=== PATIENT | female | born 1980 | race Caucasian/White ===

== ENCOUNTER 2019-03-02 16:23 | Emergency (ER) | payer MEDICAID ==
[~2019-03-02] VITALS: Ht 154.9 cm; Wt 77.6 kg
[2019-03-02 16:27] VITALS: Ht 154.9 cm; Wt 77.6 kg
[2019-03-02 17:09] LABS: BASOPHIL % 2.4 % (0-2); PLATELET COUNT 318 x10^3mcL (130-400); RED CELL DISTRIBUTION WIDTH 13.5 % (11.5-14.5)
[2019-03-02 17:30] LABS: ALBUMIN 3.8 g/dL (3.4-5.0); AST/SGOT 15 U/L (15-37); BILIRUBIN TOTAL 0.2 mg/dL (0.20-1.00); CALCIUM 8.9 mg/dL (8.5-10.1); CARBON DIOXIDE 31.3 mmol/L (21-32); CHLORIDE SERUM 104 mmol/L (98-107); GFR1 > 60 mL/min; GLUCOSE SERUM 83 mg/dL (74-106); POTASSIUM SERUM 3.8 mmol/L (3.5-5.1); SODIUM SERUM 140 mmol/L (136-145); TOTAL PROTEIN, SERUM 7.8 g/dL (6.4-8.2)
[2019-03-02 17:31] LABS: ALKALINE PHOSPHATASE 76 U/L (46-116); ALT/SGPT 32 U/L (14-59)
[2019-03-02 17:55] LABS: AMPHETAMINE QUAL UR NONE DETECTED (See below)
[2019-03-02 19:26] VITALS: BP 114/73
== END 2019-03-02 19:26 | disposition home or self-care (01) ==
LOC: ED 16:23
PROVIDERS: Emergency Medicine
DX: R07.89 Other chest pain (principal)
CPT/HCPCS: 36415; 85378